=== PATIENT | male | born 1990 | race African-American/Black ===

== ENCOUNTER 2018-11-23 11:36 | Emergency (ER) | payer SELFPAY ==
[~2018-11-23] VITALS: Ht 180.3 cm; Wt 88.0 kg
[2018-11-23] MEDS ORDERED: NKM (11:48)
[2018-11-23 11:50] VITALS: BP 130/80
[2018-11-23] MEDS ORDERED: CEPHALEXIN500 MG ORAL (13:57)
[2018-11-23] MEDS ORDERED: NORCO 5-325 TA1 EACH ORAL (13:57)
[2018-11-23] MEDS ORDERED: IBUPROFEN600 MG ORAL (13:57)
[2018-11-23] MEDS ORDERED: NEXAFED30 MG ORAL (13:57)
[2018-11-23 14:06] VITALS: BP 130/86
--- NOTE | 2018-11-23 16:52 | Emergency Room Report ---
History of Present Illness General Chief Complaint: Multiple Trauma/Fall Source: Patient Present Illness HPI 28-year-old male presents ED with evaluation. States he was elbowed in the face yesterday while playing basketball. Presents with deformity to the nose. Pain is throbbing, 9 out of 10, nonradiating. Denies LOC. Notes some bleeding initially. Tetanus is up-to-date. Denies any other injuries. No other aggravating relieving factors. Denies any other associated symptoms Allergies: Coded Allergies: No Known Allergies (Unverified , 11/23/18) Patient History Past Medical History: asthma Past Surgical History: none Pertinent Family History: none Social History: Denies: smoking, alcohol use, drug use Immunizations: UTD Reviewed Nursing Documentation: PMH: Agreed; PSxH: Agreed Nursing Documentation-PMH Past Medical History: No History, Except For Hx Asthma: Yes Review of Systems All Other Systems: negative except mentioned in HPI Physical Exam Vital Signs Date Time Temp Pulse Resp B/P (MAP) Pulse Ox O2 Delivery O2 Flow Rate FiO2 11/23/18 11:44 98.2 83 14 130/80 97 Room Air Sp02 EP Interpretation: reviewed, normal General Appearance: no apparent distress, alert, GCS 15, non-toxic Head: normocephalic Eyes: bilateral eye normal inspection, bilateral eye PERRL ENT: TMs + canals normal, other - swelling/deformity to nose. no septal hematoma Neck: full range of motion, supple/symm/no masses Respiratory: normal inspection Cardiovascular #1: normal inspection Gastrointestinal: normal inspection Rectal: deferred Genitourinary: no CVA tenderness Musculoskeletal: normal inspection Neurologic: alert, oriented x3, responsive, motor strength/tone normal, sensory intact, speech normal Psychiatric: normal inspection Skin: normal inspection Lymphatic: normal inspection Procedures Additional Procedure Procedure Narrative Patient placed in upright position. Nose was anesthetized using lidocaine. Using sterile technique I placed the blunt end of a forcep to the septum and using downward traction I reduce the nose. There appears to be improved alignment however there is persistent swelling. No bleeding. Patient tolerated procedure without complication Medical Decision Making Diagnostic Impression: Primary Impression: Nasal bone fracture Qualified Codes: S02.2XXA - Fracture of nasal bones, initial encounter for closed fracture ER Course Hospital Course 28 yo M presents to ED with deformity to the nose Differential diagnoses include: Fracture, dislocation, sprain, contusion Clinical course Patient placed on stretcher. After initial history and physical, I ordered CT facial bones CT facial bones shows comminuted fx. and discussed findings with patient. Agreed to the option of closed reduction Local anesthesia applied. Using blunt forcep I inserted into the nostril and reduced the fracture. There appears to be improved alignment but swelling persists. Splinting applied. Discussed findings with patient. We'll provide clinic referrals and plastics referrals. Safe for discharge and close outpatient follow-up Diagnosis - nasal bone fx Stable and discharged to home with prescription for Sharon, keflex, pseudophed. no nasal blowing. Followup with ENT/plastics. Return to ED if symptoms recur or worsen CT/MRI/US Diagnostic Results CT/MRI/US Diagnostic Results : Imaging Test Ordered: CT Facial Bones Impression Comminuted depressed fractures of the bilateral nasal bones. Mid nasal septal bone fracture Last Vital Signs Date Time Temp Pulse Resp B/P (MAP) Pulse Ox O2 Delivery O2 Flow Rate FiO2 11/23/18 14:06 98.2 88 18 130/86 100 Room Air Status: improved Disposition: HOME, SELF-CARE Condition: Stable Scripts Pseudoephedrine Hcl* (NEXAFED*) 30 Mg Tablet 30 MG ORAL Q6H PRN for congestion for 7 Days, TAB Prov: Mukesh Moody MD 11/23/18 Cephalexin* (KEFLEX*) 500 Mg Capsule 500 MG ORAL EVERY 6 HOURS for 7 Days, CAP Prov: Mukesh Moody MD 11/23/18 Hydrocodone Bit/Acetaminophen 5-325* (NORCO 5-325*) 1 Each Tablet 1 TAB ORAL Q6H PRN for For Pain, #10 TAB 0 Refills Prov: Mukesh Moody MD 11/23/18 Ibuprofen* (MOTRIN*) 600 Mg Tablet 600 MG ORAL Q8H PRN for For Pain, #30 TAB 0 Refills Prov: Mukesh Moody MD 11/23/18 Referrals: Rodrigo Cespedes MD [facility] Departure Forms: Return to Work Return to Work Date: Nov 24, 2018 Work Restrictions: None Patient Instructions: Nasal Fracture, [id number] Additional Instructions: avoid nose blowing. followup with ENT or plastics as outpatient. Mukesh Moody MD Nov 23, 2018 16:52
--- NOTE | 2018-11-24 09:19 | Diagnostic Imaging Report ---
Indication: Pain status post injury Technique: CT maxillofacial was performed utilizing automated exposure control without intravenous contrast material. Axial and coronal images were generated. CT dose: Total DLP 568.95 mGycm; CTDI vol 28.19 mGy Comparison: None Findings: There are acute, comminuted and depressed fractures of the bilateral nasal bones. Additionally there is a mildly displaced fracture of the mid nasal septum (series 4 image #23). There is paranasal soft tissue swelling. Minimal mucosal thickening is noted in the right maxillary sinus. Otherwise paranasal sinuses are clear. Mastoid air cells are clear. Bony orbits are intact. Globes are symmetric. No infiltration of conal fat bilaterally. Mandible is intact. Imaged intracranial structures grossly unremarkable. Imaged portions of the cervical spine unremarkable. No prevertebral fluid collection or additional abnormality appreciated on this noncontrast exam. IMPRESSION: Comminuted and depressed acute fractures of the bilateral nasal bones. Associated fracture of the bony nasal septum. Paranasal soft tissue swelling. This corresponds with the statrad preliminary report. The CT scanner at [facility] is accredited by the [employer] and the scans are performed using protocols designed to limit radiation exposure to as low as reasonably achievable to attain images of sufficient resolution adequate for diagnostic evaluation.
== END 2018-11-23 14:06 | disposition home or self-care (01) ==
LOC: EMR 13:00
DX: S02.2XXA Fracture of nasal bones, initial encounter for closed fracture (principal); W50.0XXA Accidental hit or strike by another person, initial encounter; Y93.67 Activity, basketball; Y92.9 Unspecified place or not applicable
CPT/HCPCS: 70486; 99284